=== PATIENT | female | born 1960 ===

== ENCOUNTER 2023-07-15 08:18 | Outpatient (CLI) | payer OTHER | END 2023-07-15 10:06 | disposition home or self-care (01) | LOC: MAMO-SONO 08:18 → RX STUDY 08:18 | PROVIDERS: ATTEND Internal Medicine Gastroenterology | DX: R13.10 Dysphagia, unspecified (principal) ==

== ENCOUNTER 2023-12-24 07:27 | Outpatient (CLI) | payer OTHER | END 2023-12-24 07:28 | disposition home or self-care (01) | LOC: NUCLEAR 07:27 | PROVIDERS: ATTEND Internal Medicine Endocrinology, Diabetes & Metabolism | DX: E21.0 Primary hyperparathyroidism (principal) | CPT/HCPCS: 78072; A9500 ==